=== PATIENT | male | born 1950 | race Caucasian/White ===

== ENCOUNTER 2024-06-04 11:15 | Emergency (ER) | payer MEDICARE, OTHER ==
[~2024-06-04] VITALS: Ht 177.8 cm; Wt 83.9 kg
[2024-06-04 13:43] LABS: BASOPHILS ABSOLUTE AUTO 0.03 K/mm3 (0.00-0.23); BASOPHILS PERCENT AUTO 0 % (0-2); EOSINOPHILS ABSOLUTE AUTO 0.03 K/mm3 (0.00-0.68); EOSINOPHILS PERCENT AUTO 0 % (0-6); Hematocrit 42.9 % (37.0-53.0); Hemoglobin 14.7 g/dL (13.5-17.5); IMMATURE GRAN ABSOLUTE AUTO 0.05 K/mm3 (0.00-0.10); IMMATURE GRAN PERCENT AUTO 1 % (0-1); LYMPHOCYTES ABSOLUTE AUTO 1.45 K/mm3 (0.84-5.20); LYMPHOCYTES PERCENT AUTO 14 % (21-46); MONOCYTES ABSOLUTE AUTO 0.98 K/mm3 (0.16-1.47); MONOCYTES PERCENT AUTO 9 % (4-13); Mean Corpuscular HGB 30.1 pg (26.0-34.0); Mean Corpuscular HGB Conc 34.3 g/dL (31.5-36.5); Mean Corpuscular Volume 88 fL (80-100); Mean Platelet Volume 9.9 fL (9.1-12.4); NEUTROPHILS ABSOLUTE AUTO 7.97 K/mm3 (1.96-9.15); NEUTROPHILS PERCENT AUTO 76 % (41-73); Platelet Count 263 K/mm3 (150-400); RDW Coefficient Variation 13.3 % (11.7-14.2); Red Blood Cell Count 4.89 M/mm3 (4.30-5.90); White Blood Cell Count 10.51 K/mm3 (4.00-11.30)
[2024-06-04] MEDS ORDERED: Cephalexin Monohydrate 500 MG Cap PO ONE (13:50)
[2024-06-04] MEDS ORDERED: CEPH500 PO (13:56)
[2024-06-04 13:58] LABS: Albumin, Blood 2.8 g/dL (3.4-5.0); Albumin/Globulin Ratio 0.6 (0.8-1.8); Bilirubin, Total 0.6 mg/dL (0.1-1.0); Bun/Creatinine Ratio 32.3 (12.0-20.0); Calcium, Blood 8.9 mg/dL (8.5-10.1); Creatinine, Blood 0.71 mg/dL (0.60-1.20); Globulin, Blood 4.7 g/dL (2.2-4.0); Potassium, Blood 4.4 mmol/L (3.5-5.5); Total Protein, Blood 7.5 g/dL (6.4-8.2)
== END 2024-06-04 14:51 | disposition home or self-care (01) ==
LOC: ER 11:15
PROVIDERS: Physician Assistant
DX: L03.031 Cellulitis of right toe (principal); L03.113 Cellulitis of right upper limb; G20.A1 Parkinson's disease without dyskinesia, without mention of fluctuations; E11.9 Type 2 diabetes mellitus without complications
CPT/HCPCS: 73080; 73110; 73630; 80053; 85025; A9270

== ENCOUNTER → 2024-06-13 | Outpatient (CLI) | payer MEDICARE, OTHER ==
[~2024-06-13] MED LIST: CARBIDOPA-LEVO1 EA19 PO; CEPH500 PO; FAMO20 PO; INSULIN AS100 UNIT/8 SC; LOVASTATIN20 MG PO; METOPROLOL TART25 MG PO; MINOCYCLINE HC100 M2 PO; NOVOLOG FL100 UNIT/3 SC; ROPINIROLE HCL2 MG PO; SULFAMETHOXAZO1 EAC1 PO; TAMSULOSIN HCL0.4 M1 PO
== END ==
LOC: LAB 09:25 → LAB SHORT 09:25
DX: E11.621 Type 2 diabetes mellitus with foot ulcer (principal)
CPT/HCPCS: 87070; 87075; 87077; 87186; 87205

== ENCOUNTER 2024-06-25 10:34 | Inpatient (IN) | payer MEDICARE, OTHER ==
[~2024-06-25] VITALS: Ht 177.8 cm; Wt 75.4 kg
[~2024-06-25 10:34] MED LIST changes: -CARBIDOPA-LEVO1 EA19 PO; -FAMO20 PO; -INSULIN AS100 UNIT/8 SC; -LOVASTATIN20 MG PO; -METOPROLOL TART25 MG PO; -MINOCYCLINE HC100 M2 PO; -NOVOLOG FL100 UNIT/3 SC; -ROPINIROLE HCL2 MG PO; -SULFAMETHOXAZO1 EAC1 PO; -TAMSULOSIN HCL0.4 M1 PO
[2024-06-25 11:27] LABS: BASOPHILS ABSOLUTE AUTO 0.04 K/mm3 (0.00-0.23); BASOPHILS PERCENT AUTO 1 % (0-2); EOSINOPHILS ABSOLUTE AUTO 0.03 K/mm3 (0.00-0.68); EOSINOPHILS PERCENT AUTO 0 % (0-6); Hematocrit 37.3 % (37.0-53.0); Hemoglobin 12.4 g/dL (13.5-17.5); IMMATURE GRAN ABSOLUTE AUTO 0.06 K/mm3 (0.00-0.10); IMMATURE GRAN PERCENT AUTO 1 % (0-1); LYMPHOCYTES ABSOLUTE AUTO 1.49 K/mm3 (0.84-5.20); LYMPHOCYTES PERCENT AUTO 17 % (21-46); MONOCYTES ABSOLUTE AUTO 0.57 K/mm3 (0.16-1.47); MONOCYTES PERCENT AUTO 7 % (4-13); Mean Corpuscular HGB 29.4 pg (26.0-34.0); Mean Corpuscular HGB Conc 33.2 g/dL (31.5-36.5); Mean Corpuscular Volume 88 fL (80-100); NEUTROPHILS PERCENT AUTO 75 % (41-73); Platelet Count 317 K/mm3 (150-400); RDW Coefficient Variation 13.5 % (11.7-14.2); RDW Standard Deviation 43.3 fL (35.1-46.3); Red Blood Cell Count 4.22 M/mm3 (4.30-5.90); White Blood Cell Count 8.69 K/mm3 (4.00-11.30)
[2024-06-25] MEDS ORDERED: SULFAMETHOXAZO1 EAC1 PO (11:32)
[2024-06-25] MEDS ORDERED: MINOCYCLINE HC100 M2 PO (11:32)
[2024-06-25] MEDS ORDERED: NOVOLOG FL100 UNIT/3 SC (11:33)
[2024-06-25] MEDS ORDERED: METOPROLOL TART25 MG PO (11:33)
[2024-06-25] MEDS ORDERED: CARBIDOPA-LEVO1 EA19 PO (11:33)
[2024-06-25] MEDS ORDERED: FAMO20 PO (11:33)
[2024-06-25] MEDS ORDERED: LOVASTATIN20 MG PO (11:33)
[2024-06-25] MEDS ORDERED: INSULIN AS100 UNIT/8 SC (11:34)
[2024-06-25] MEDS ORDERED: TAMSULOSIN HCL0.4 M1 PO (11:34)
[2024-06-25] MEDS ORDERED: ROPINIROLE HCL2 MG PO (11:34)
[2024-06-25] MEDS ORDERED: Piperacillin/Tazobactam Sod 3.375 GM in NS 100 ML IV ONE (11:45)
[2024-06-25 11:46] LABS: Albumin, Blood 2.2 g/dL (3.4-5.0); Albumin/Globulin Ratio 0.5 (0.8-1.8); Bilirubin, Total 0.7 mg/dL (0.1-1.0); Bun/Creatinine Ratio 26.1 (12.0-20.0); Calcium, Blood 8.7 mg/dL (8.5-10.1); Creatinine, Blood 0.69 mg/dL (0.60-1.20); Globulin, Blood 4.7 g/dL (2.2-4.0); Potassium, Blood 4.5 mmol/L (3.5-5.5); Total Protein, Blood 6.9 g/dL (6.4-8.2)
[2024-06-25] MEDS ORDERED: FentaNYL Citrate 50 MCG/ML 2 ML Injection IV ONE (11:50)
[2024-06-25] MEDS ORDERED: NS 1,000 ML IV SCH (11:50)
[2024-06-25] MEDS ORDERED: Vancomycin HCL 2,000 MG in NS 500 ML IV ONE ×2 (11:50→13:05)
[2024-06-25] MEDS ORDERED: Ketorolac Tromethamine 30mg Vial IV ONE (11:50)
[2024-06-25] MEDS ORDERED: Piperacillin/Tazobactam Sod 3.375 GM in NS 100 ML IV SCH ×2 (13:00→18:00)
[2024-06-25] MEDS ORDERED: Ondansetron 4 MG SoluTab MM PRN (13:15)
[2024-06-25] MEDS ORDERED: Morphine Sulfate 4 MG/1 ML Injection IV PRN (13:15)
[2024-06-25 14:54] VITALS: BP 141/56
[2024-06-25] MEDS ORDERED: Insulin Regular 100 UNIT/ML 10ML Vial SC SCH (18:00)
[2024-06-25] MEDS ORDERED: NS 250 ML IV PRN (18:35)
[2024-06-25 19:51] VITALS: BP 135/63
[2024-06-25] MEDS ORDERED: Lactobacil 2-S.Thermo-Bifido 1 1 Cap PO SCH (21:00)
--- NOTE | 2024-06-25 23:47 | NUR ---
HOSPITALIST CONTACTED. HOSPITALIST NOTIFIED OF WOUND TO COCCYX AND REDNESS/EXCORITATION TO PENIS AND GROIN. ODALYS ORDERED FOR PATIENT TO HAVE MEDICATED POWDER AND WOUND CARE TO COCCYX-SEE ORDERS.
[2024-06-26] MEDS ORDERED: Vancomycin HCL 1,500 MG in NS 250 ML IV SCH (01:00)
[2024-06-26 02:22] VITALS: BP 136/61
[2024-06-26 05:53] LABS: BASOPHILS ABSOLUTE AUTO 0.04 K/mm3 (0.00-0.23); BASOPHILS PERCENT AUTO 1 % (0-2); EOSINOPHILS ABSOLUTE AUTO 0.07 K/mm3 (0.00-0.68); EOSINOPHILS PERCENT AUTO 1 % (0-6); Hematocrit 34.6 % (37.0-53.0); Hemoglobin 11.5 g/dL (13.5-17.5); IMMATURE GRAN ABSOLUTE AUTO 0.05 K/mm3 (0.00-0.10); IMMATURE GRAN PERCENT AUTO 1 % (0-1); LYMPHOCYTES ABSOLUTE AUTO 1.78 K/mm3 (0.84-5.20); LYMPHOCYTES PERCENT AUTO 24 % (21-46); MONOCYTES ABSOLUTE AUTO 0.57 K/mm3 (0.16-1.47); MONOCYTES PERCENT AUTO 8 % (4-13); Mean Corpuscular HGB 29.3 pg (26.0-34.0); Mean Corpuscular HGB Conc 33.2 g/dL (31.5-36.5); Mean Corpuscular Volume 88 fL (80-100); Mean Platelet Volume 8.9 fL (9.1-12.4); NEUTROPHILS ABSOLUTE AUTO 4.94 K/mm3 (1.96-9.15); NEUTROPHILS PERCENT AUTO 66 % (41-73); Platelet Count 297 K/mm3 (150-400); RDW Coefficient Variation 13.5 % (11.7-14.2); RDW Standard Deviation 43.4 fL (35.1-46.3); Red Blood Cell Count 3.93 M/mm3 (4.30-5.90); White Blood Cell Count 7.45 K/mm3 (4.00-11.30)
[2024-06-26 06:17] LABS: Albumin, Blood 1.8 g/dL (3.4-5.0); Albumin/Globulin Ratio 0.4 (0.8-1.8); Bilirubin, Total 0.6 mg/dL (0.1-1.0); Bun/Creatinine Ratio 24.7 (12.0-20.0); Calcium, Blood 8.3 mg/dL (8.5-10.1); Creatinine, Blood 0.53 mg/dL (0.60-1.20); Globulin, Blood 4.3 g/dL (2.2-4.0); Potassium, Blood 3.9 mmol/L (3.5-5.5); Total Protein, Blood 6.1 g/dL (6.4-8.2)
--- NOTE | 2024-06-26 06:28 | NUR ---
SHIFT SUMMARY. PATIENT IS ALERT TO SELF AND PLACE. PATIENT IS PLEASANTLY CONFUSED. PATIENT IS POOR HISTORIAN. DAUGHTER TO BRING IN MEDICATION LIST TODAY-SHE SAID SHE WOULD BE IN AROUND 10AM. PATIENT NEEDS CONSULT CALLED IN TO WITH PODIATRY WHEN HIS OFFICE OPEN-WILL RELAY TO DAYSHIFT NURSE. PATIENT RESTED T/O NIGHT, EASILY AROUSABLE-PATIENT SNORES. PATIENT HAS GRADY CATHETER IN PLACE THAT IS PATENT AND DRAINING TO GRAVITY-PATIENT STRAIGHT CATHS AT BASELINE. PATIENT HAS WOUND TO COCCYX, EXCORIATION TO TIP OF PENIS AND RED RASH TO GROIN- SEE WOUND CARE ORDER. BED IS LOCKED IN THE LOWEST POSITION WITH CALL LIGHT IN PLACE. CARE IS ONGOING.
[2024-06-26 07:25] VITALS: BP 137/65
[2024-06-26] MEDS ORDERED: Miconazole Nitrate 2% 85 GM PWD TOP SCH (09:00)
[2024-06-26] MEDS ORDERED: NS 1,000 ML IV SCH (11:15)
[2024-06-26] MEDS ORDERED: VITAMIN D325 MC3 PO (14:43)
[2024-06-26] MEDS ORDERED: ASPIR 8181 M1 PO (14:43)
[2024-06-26 16:53] VITALS: BP 144/55
[2024-06-26] MEDS ORDERED: BACTRIM DS TAB1 EAC6 PO (17:14)
--- NOTE | 2024-06-26 19:25 | NUR ---
SHIFT SUMMARY PATIENT RESTING MOST OF DAY. PATIENT EASILY AROUSES, SPEAKS SOFTLY, TOLERATING EATING AND DRINKING. SPOKE WITH PODIATRY. PATIENT TO HAVE SURGERY TOMORROW. INTERVENTIONAL CARDIOLOGY SPOKE WITH DAUGHTER AND PATIENT ABOUT REVASULARIZING LEG ON SUNDAY. TOE CONTINUES TO HAVE SOME DRAINAGE. NOW BLISTER DEVELOPING ON R HEAL. NO PRESSURE TO AREA ALL DAY BUT CONTINUES TO PROGRESS.
[2024-06-26 20:00] VITALS: BP 139/66
[2024-06-27] VITALS (16 sets, daily range): BP systolic 136–153; BP diastolic 60–80
--- NOTE | 2024-06-27 06:05 | NUR ---
SHIFT SUMMARY. PATIENT IS A&OX2. PATIENT RESTING MOST OF SHIFT-EASILY AROUSABLE. PATIENT IS SOFT SPOKEN. PATIENT HAD BED BATH AND LINENS CHANGED. PATIENTS IV WENT BAD-NEW IV PLACED-IV PULLED-PATIENT HAS NEW LINE THAT IS COVERED FOR PROTECTION. PATIENT HAS BEEN NPO SINCE MIDNIGHT. PATIENT DENIES PAIN. PATIENT IS PLEASANTLY CONFUSED AND COOPERATIVE WITH CARE. PLAN IS FOR PODIATRY TO SEE PATIENT TODAY-POSSIBLE SURGERY PER REPORT. BED IS LOCKED IN THE LOWEST POSITION WITH CALL LIGHT IN REACH. CARE IS ONGOING.
[2024-06-27 09:24] LABS: BASOPHILS ABSOLUTE AUTO 0.03 K/mm3 (0.00-0.23); BASOPHILS PERCENT AUTO 0 % (0-2); EOSINOPHILS ABSOLUTE AUTO 0.13 K/mm3 (0.00-0.68); EOSINOPHILS PERCENT AUTO 2 % (0-6); Hematocrit 35.1 % (37.0-53.0); Hemoglobin 11.2 g/dL (13.5-17.5); IMMATURE GRAN ABSOLUTE AUTO 0.03 K/mm3 (0.00-0.10); IMMATURE GRAN PERCENT AUTO 0 % (0-1); LYMPHOCYTES ABSOLUTE AUTO 1.46 K/mm3 (0.84-5.20); LYMPHOCYTES PERCENT AUTO 21 % (21-46); MONOCYTES ABSOLUTE AUTO 0.44 K/mm3 (0.16-1.47); MONOCYTES PERCENT AUTO 6 % (4-13); Mean Corpuscular HGB 28.4 pg (26.0-34.0); Mean Corpuscular HGB Conc 31.9 g/dL (31.5-36.5); Mean Corpuscular Volume 89 fL (80-100); Mean Platelet Volume 8.3 fL (9.1-12.4); NEUTROPHILS ABSOLUTE AUTO 4.76 K/mm3 (1.96-9.15); NEUTROPHILS PERCENT AUTO 70 % (41-73); Platelet Count 272 K/mm3 (150-400); RDW Coefficient Variation 13.4 % (11.7-14.2); RDW Standard Deviation 43.9 fL (35.1-46.3); Red Blood Cell Count 3.94 M/mm3 (4.30-5.90); White Blood Cell Count 6.85 K/mm3 (4.00-11.30)
[2024-06-27 09:42] LABS: Bun/Creatinine Ratio 12.4 (12.0-20.0); Calcium, Blood 8.3 mg/dL (8.5-10.1); Creatinine, Blood 0.57 mg/dL (0.60-1.20); Potassium, Blood 3.8 mmol/L (3.5-5.5)
[2024-06-27] MEDS ORDERED: Bupivacaine 0.5% HCl 5 MG/ML 30MLVIAL ONE (11:30)
[2024-06-27] MEDS ORDERED: Lidocaine HCL 1% 10 ML MDV ONE (11:31)
[2024-06-27] MEDS ORDERED: Bupivacaine 0.5% Inj 10 ML Vial ONE (11:31)
[2024-06-27] MEDS ORDERED: Lactated Ringer's 1,000 ML IV SCH (11:45)
--- NOTE | 2024-06-27 11:51 | NUR ---
PT REPORTED TO BE NPO BY MED FLOOR RN. PT RECENTLY TO [facility] BY BED WITH MULT ASSIST. History, Chart, Medications and Allergies reviewed before start of procedure.Lungs clear T/O to Auscultation. Pre-Op teaching done. Pt verbalizes understanding. DR PADILLA AND ANESTHESIA TALKING WITH PT'S DAUGHTER ON PHONE TO CONFIRM CONSENT.
[2024-06-27] MEDS ORDERED: propofoL 20 ML IV ONE ×2 (12:10→12:31)
[2024-06-27] MEDS ORDERED: Lidocaine HCl 2% 20 ML MDV ONE (12:31)
--- NOTE | 2024-06-27 13:46 | NUR ---
TRANSFER TO OR PATIENT TAKEN DOWN BY BED TO OR. PATIENT ALERT AND INTERACTIVE BUT CONFUSED. R LEG VERY TENDER TO TOUCH BUT DENIES PAIN IF UNDISTURBED. PATIENT TO HAVE R SECOND TOE REMOVED. FAMILY AWARE OF SURGERY PLAN BUT NOT PRESENT.
--- NOTE | 2024-06-27 13:55 | NUR ---
POST OP FROM PACU TO MED FLOOR PT BROUGHT UP FROM PACU BY 2 ELECTRICAL MAINTENANCE WORKER'S, SLEEPING BUT WAKES TO VOICE AND FOLLOWS COMMANDS, POST OP VITALS STARTED, RESPS EVEN AND UNLABORED, O2 SATS > 96% ON RA, DRESSING TO R FOOT C/D/I, ABLE TO PALPATE PULSE BLE WHICH ARE BOTH FAINT BUT PRESENT, CAP REFILL < 3 SECONDS BLE, GRADY HAS CLEAR YELLOW URING IN IT. NO CONCERNS AT THIS TIME.
--- NOTE | 2024-06-27 15:12 | NUR ---
SHIFT SUMMARY POD0 R SECOND TOE AMPUTATION, PT HAS SLEPT T/O MOST OF THE SHIFT SINCE RETURNING FROM SURGERY, FAMILY AT THE BEDSIDE FOR THE LAST FEW HOURS, PT WAKES TO VOICE AND IS SOCIALIZING WITH HIS VISITORS, TOLERATING PO POST OP AND REPORTS FEELING HUNGRY. POST OP VITALS CONTINUING. NO ACUTE EVENTS THIS SHIFT, CALL LIGHT IN REACH.
--- NOTE | 2024-06-27 18:33 | NUR ---
ASPIRATION CONCERNS DINNER TRAY WAS BROUGHT IN BY FINISHED HARDWARE ERECTOR WHO ATTEMPTED TO FEED THE PATIENT PER THE DAUGHTERS STATEMENT THAT HE NEEDS HELP EATING. PT GIVEN BITES OF FOOD AND WAS COUGHING WITH EACH BITE. FINISHED HARDWARE ERECTOR REPORTED TO THIS RN HIS CONCERNS WITH THE PATIENT BEING AT RISK FOR ASPIRATION. ASSESSEDD PATIENT WHO SOUNDS A BIT COURSE IN HIS RIGHT LOWER LOBE. CALL PLACED TO ATTENDING REQUESTING ST EVALUATE HIM. ORDERS PLACED. PT NOW NPO UNTIL EVAL COMPLETE
[2024-06-28 03:31] VITALS: BP 134/72
--- NOTE | 2024-06-28 05:36 | NUR ---
SHIFT SUMMARY PATIENT DID NOT TRY TO GET OUT OF BED, WAS AWAKE AND PULLED OUT HIS IV, HAD BREAKER NURSE SHERRI SNU RESTART FOR ME. REMAINS NPO. DRESSING CD&I CIRC TO RIGHT BIG TOE WNL. ELEVATED ON 2 PILLOWS. GRADY DRAINING YIN URINE. GIVEN 2 MG MS FOR PAIN.
[2024-06-28 08:06] VITALS: BP 141/60
[2024-06-28] MEDS ORDERED: Acetaminophen 325 MG TABLET PO PRN (13:45)
[2024-06-28] MEDS ORDERED: Enoxaparin 40 MG/0.4 ML SYR SC SCH (14:00)
[2024-06-28 15:47] VITALS: BP 143/62
--- NOTE | 2024-06-28 18:39 | NUR ---
NO CHANGE IN PT CONDITION. PT HAS BEEN LAYING QUIETLY WITH NO C/O PAIN NO DISTRESS, VERY DIFFICULT TO UNDERSTAND BUT HAS BEEN ANSWERING APPROPRIATLY. TURNED EVERY 2 HOURS OR NEEDED X 2 BM AND MEPILEX REPLACED TO COCCYX. GRADY DRAINING AND IN PLLACE
[2024-06-28 19:24] VITALS: BP 149/53
--- NOTE | 2024-06-29 01:25 | NUR ---
PT ARRIVED TO MEDICAL FLOOR AT 2350 VIA W/C. ALFRED WEATHERS COMPLETED THE INITIAL ADMISSION AND THE SKIN CHECK WITH THIS DELPHI PROGRAMMER. THIS DELPHI PROGRAMMER COMPLETED MED REC AND HEALTH HX INTERVENTION ON EMAR. PT. IS A&O X4, ABLE TO AMBULATE TO THE BATHROOM. PT WAS ABLE TO ANSWER ALL ADMISSION QUESTIONS HIMSELF. PT DENIES PAIN, SOB, H/A, N/V. PER ORDER: FLUID RESTRICTION IS 1500ML/ DAY. PT HAD A SMALL SNACK AND REQUESTED SOME SPRITE &H20. 480MLS X 2 CUPS BY THE BEDSIDE. EDUCATED DWARF TREE GROWER LIGHT, BED AT THE LOWEST POSITION. PT IS ABLE TO MAKE HIS NEEDS KNOWN.
[2024-06-29 02:51] VITALS: BP 151/67
--- NOTE | 2024-06-29 05:59 | NUR ---
SHIFT SUMMARY PT IS ON BEDREST AND MOSTLY NON VERBAL D/T HX OF PARKINSON'S DISEASE. PT ABLE TO ANSWER CLOSE-ENDED QUESTIONS. PT VOCALIZING THAT HE IS VERY THIRSTY. NOTED THAT CLEAR LIQUIDS MAKE PT COUGH, HOB >90 DEGREES WHEN GIVEN tsp AT A TIME, CLEAR ENSURE FLUID. WHEN MIXED WITH APPLE SAUCE TO HONEY CONSISTENCY, PT HAD >120MLS OF THE FLUID AND ENJOYED IT W/O COUGHING. PT ABLE TO SWALLOW EASILY. MONITORED AND HOB >90 DEGREES 30 MINS AFTER FEEDING. PT IS ABLE TO SAY "NO" WHEN ASKED IF HE IS IN PAIN. COCCYX AREA MEPILEX CHANGED X1 DURING THIS SHIFT, ULCER IS LIGHT PINK AND SURROUNDING AREA APPEARS DRY, NON INFLAMMED.GRADY INTACT, DRAINING TEA COLOR URINE >1L DURING THIS SHIFT. LEFT FOOT ELEVATED WITH PILLOWS. DRESSING C/D/I. Q2HR TURNS. NO ACUTE EVENTS/DISTRESS DURING THIS SHIFT. Q6HRS BG'S WNL. BED AT THE LOWEST POSITION.
[2024-06-29 06:18] LABS: BASOPHILS ABSOLUTE AUTO 0.04 K/mm3 (0.00-0.23); BASOPHILS PERCENT AUTO 1 % (0-2); EOSINOPHILS ABSOLUTE AUTO 0.17 K/mm3 (0.00-0.68); EOSINOPHILS PERCENT AUTO 2 % (0-6); Hematocrit 35.2 % (37.0-53.0); Hemoglobin 11.5 g/dL (13.5-17.5); IMMATURE GRAN ABSOLUTE AUTO 0.06 K/mm3 (0.00-0.10); IMMATURE GRAN PERCENT AUTO 1 % (0-1); LYMPHOCYTES ABSOLUTE AUTO 1.46 K/mm3 (0.84-5.20); LYMPHOCYTES PERCENT AUTO 21 % (21-46); MONOCYTES ABSOLUTE AUTO 0.58 K/mm3 (0.16-1.47); MONOCYTES PERCENT AUTO 8 % (4-13); Mean Corpuscular HGB 28.8 pg (26.0-34.0); Mean Corpuscular HGB Conc 32.7 g/dL (31.5-36.5); Mean Corpuscular Volume 88 fL (80-100); Mean Platelet Volume 8.6 fL (9.1-12.4); NEUTROPHILS ABSOLUTE AUTO 4.75 K/mm3 (1.96-9.15); NEUTROPHILS PERCENT AUTO 67 % (41-73); Platelet Count 281 K/mm3 (150-400); RDW Coefficient Variation 13.5 % (11.7-14.2); RDW Standard Deviation 43.7 fL (35.1-46.3); Red Blood Cell Count 3.99 M/mm3 (4.30-5.90); White Blood Cell Count 7.06 K/mm3 (4.00-11.30)
[2024-06-29 06:50] LABS: Bun/Creatinine Ratio 13.9 (12.0-20.0); Calcium, Blood 8.7 mg/dL (8.5-10.1); Creatinine, Blood 0.65 mg/dL (0.60-1.20); Potassium, Blood 3.4 mmol/L (3.5-5.5)
[2024-06-29] MEDS ORDERED: Potassium Chloride 20 MEQ TabCR PO ONE (08:40)
[2024-06-29 10:08] VITALS: BP 141/59
[2024-06-29 15:40] VITALS: BP 152/55
[2024-06-29] MEDS ORDERED: Insulin Regular 100 UNIT/ML 10ML Vial SC SCH (16:30)
[2024-06-29] MEDS ORDERED: CefTRIAXone Sodium 1,000 MG in NS 100 ML IV SCH (17:00)
--- NOTE | 2024-06-29 19:15 | NUR ---
no change in pt condition today. pt did well with meals and turning but has been unable to make needs known. still confused about place and situation but is able to answer appropriatly. palative care consult place. alison marcelino in [facility]
[2024-06-29 19:38] VITALS: BP 156/61
--- NOTE | 2024-06-30 04:06 | NUR ---
SHIFT SUMMARY PATIENT HAD NO ACUTE CHANGES. AXOX 2, BEDREST, AND MOSTLY NON-VERBAL. DENIES CHEST PAIN, SOB, AND N/V. VSS/AFEBRILE. PIV INTACT. IV ABX INFUSED. CBG 161. GRADY PATENT AND DRAINING TO GRAVITY. SLEPT MOST OF THE SHIFT. CALL LIGHT IN REACH. BED IN LOWEST POSITION. WILL CONTINUE TO MONITOR UNTIL DAY SHIFT NURSE ASSUMES CARE.
[2024-06-30 05:00] VITALS: BP 154/72
[2024-06-30 07:42] VITALS: BP 160/60
[2024-06-30 12:47] LABS: Vancomycin, Trough 34.7 ug/mL (5.0-10.0)
[2024-06-30] MEDS ORDERED: CARBIDOPA-LEVO1 EA17 PO (15:08)
[2024-06-30 16:09] VITALS: BP 153/58
--- NOTE | 2024-06-30 16:35 | NUR ---
Attempted to meet with pt and his daughter Carla this afternoon, but she already left for the day. Spoke to her by phone. She and her dad live together and she is his primary CG. They live in [place], and she requests we meet tomorrow afternoon instead to discuss goals of care, and code status. Pt is not speaking as his daughter reports he normally does, but he has been unable to take his Carbidopa/Levodopa by mouth due to his poor swallow. His daughter is bringing ODT Carbidopa/Levodopa as this will likely help with his speech. Will update bedside RN.
--- NOTE | 2024-06-30 18:26 | NUR ---
REPORT RECEIVED VERIFIED PT FAILED SPEECH EVAL AND WAS MADE NPO. PT DOESNT SEEM TO UNDERSTAND AND KEEPS ASKING FOR WATER OR FOOD. CHARAN BREAKFAST TODAY BUT LUNCH AND EVAL FAILED. DAUGHTER AT BEDSIDE WAS GIVEN SCRIPT FOR PT MEDICATION. STATED SHE WOULD BE BACK TOMORROW WITH MEDICATION. PT TO HAVE REVASCULARIZATION TOMORROW SO IS NPO AFTER MIDNIGHT.
[2024-06-30 19:42] VITALS: BP 154/64
[2024-07-01] VITALS (10 sets, daily range): BP systolic 148–173; BP diastolic 49–71
--- NOTE | 2024-07-01 04:01 | NUR ---
SET UP MECHANIC HEADING MACHINES SUMMARY VSS. DRESSING OF RIGHT FOOT CDI. AM NURSE VOICED HE CHANGED DRESSING ON AM SHIFT. PT HAS PARKINSONS DISEASE. SPEAKS VERY SLOW AND SOFT WHEN HE ANSWERS QUESTIONS. GRADY DRAINING. REPOSITIONED FOR COMFORT AND SKIN MAINTENANCE. ALSO HAS DECUBITUS ULCER OF COCCYX. HAS BEEN RESTING QUIETLY WITH FEW INTERRUPTIONS NOTED. CONTACT ISOLATION MAINTAINED. CALL LIGHT IN REACH, RAILS UP X 2 AND BED IN LOW POSITION FOR SAFETY. WILL CONTINUE TO MONITOR
[2024-07-01 05:49] LABS: BASOPHILS ABSOLUTE AUTO 0.03 K/mm3 (0.00-0.23); BASOPHILS PERCENT AUTO 0 % (0-2); EOSINOPHILS ABSOLUTE AUTO 0.06 K/mm3 (0.00-0.68); EOSINOPHILS PERCENT AUTO 1 % (0-6); Hematocrit 37.1 % (37.0-53.0); Hemoglobin 11.8 g/dL (13.5-17.5); IMMATURE GRAN ABSOLUTE AUTO 0.06 K/mm3 (0.00-0.10); IMMATURE GRAN PERCENT AUTO 1 % (0-1); LYMPHOCYTES ABSOLUTE AUTO 1.51 K/mm3 (0.84-5.20); LYMPHOCYTES PERCENT AUTO 19 % (21-46); MONOCYTES ABSOLUTE AUTO 0.71 K/mm3 (0.16-1.47); MONOCYTES PERCENT AUTO 9 % (4-13); Mean Corpuscular HGB 28.4 pg (26.0-34.0); Mean Corpuscular HGB Conc 31.8 g/dL (31.5-36.5); Mean Corpuscular Volume 89 fL (80-100); Mean Platelet Volume 8.7 fL (9.1-12.4); NEUTROPHILS ABSOLUTE AUTO 5.42 K/mm3 (1.96-9.15); NEUTROPHILS PERCENT AUTO 70 % (41-73); Platelet Count 297 K/mm3 (150-400); RDW Coefficient Variation 13.7 % (11.7-14.2); RDW Standard Deviation 44.4 fL (35.1-46.3); Red Blood Cell Count 4.15 M/mm3 (4.30-5.90); White Blood Cell Count 7.79 K/mm3 (4.00-11.30)
[2024-07-01 06:15] LABS: Anion Gap 8 mmol/L (3-11); Blood Urea Nitrogen 12 mg/dL (8-24); Bun/Creatinine Ratio 12.5 (12.0-20.0); CO2, Blood 31 mmol/L (21-32); Calcium, Blood 9.1 mg/dL (8.5-10.1); Chloride, Blood 105 mmol/L (98-108); Creatinine, Blood 0.96 mg/dL (0.60-1.20); Glomerular Filtration Rate 84 (60-); Glucose, Blood 194 mg/dL (70-99); Potassium, Blood 3.4 mmol/L (3.5-5.5); Sodium, Blood 141 mmol/L (136-145); Vancomycin, Random 24.4 ug/mL
[2024-07-01] MEDS ORDERED: Potassium Chl 20MEQ/Water100ML 100 ML IV ONE (07:55)
--- NOTE | 2024-07-01 09:29 | NUR ---
WHEN STARTING IV POTASSIUM FLUIDS, PATIENT'S LEFT FOREARM PIV WAS INFILTRATED. PIV REMOVED. WILL ATTEMPT TO PLACE NEW IV.
--- NOTE | 2024-07-01 09:50 | NUR ---
VERBAL ORDERS ORDERS RECIEVED FROM DR. ABDUL TO START PATIENT ON CLINIMIX IV AT 100ML/HR. CALLED PHARMACY AND THEY STATED TO PLACE STAINED GLASS WINDOW DESIGNER CONSULT CLINIMIX IS OUT OF STOCK. INFANT BABYSITTER CONSULT ORDERED. NOTIFIED.
--- NOTE | 2024-07-01 11:13 | NUR ---
ATTEMPTED TO CALL PATIENT'S DAUGHTER, TERESITA, SHE REQUESTED EARLIER IN THE DAY PRIOR TO PATIENT'S ANGIOGRAM. PATIENT IS TENTATIVELY SCHEDULED FOR SURGERY BETWEEN 1300 AND 1700. CALLED TO INFORM DAUGHTER, LEFT MESSAGE REQUESTING TO CALL BACK.
[2024-07-01] MEDS ORDERED: Aa 4.25%/Calcium/Lytes/D5w 1,000 ML IV SCH (12:20)
--- NOTE | 2024-07-01 15:15 | NUR ---
CALLED PATIENT'S DAUGHTER, TERESITA, TO INFORM HER THAT PATIENT WILL BE TRANSFERRED TO PCU AFTER HE HAS HIS ANGIOGRAM. DAUGHTER AWARE, WITH NO QUESTIONS AT THIS TIME.
[2024-07-01] MEDS ORDERED: NS 1,000 ML IV ONE ×2 (17:37→18:10)
[2024-07-01] MEDS ORDERED: Heparin Sodium 1000 Units/ML 10ML MDV ONE ×2 (17:37→18:10)
[2024-07-01] MEDS ORDERED: NS 250 ML IV ONE (17:37)
[2024-07-01] MEDS ORDERED: Insulin Regular 100 UNIT/ML 10ML Vial SC SCH (18:00)
--- NOTE | 2024-07-01 18:00 | NUR ---
TRANSFER NOTE PATIENT TAKEN FOR ANGIOGRAM PROCEDURE, FAMILY MEMBERS, TERESITA AND SIERRA, NOTIFIED VIA PHONE AND IN PERSON. BELONGINGS SENT TO ROOM PCU 18, MEDICATIONS PLACED IN PCU 18 DRAWER. REPORT GIVEN TO SAL SIMON. NEW PIV PLACED TO RIGHT WRIST FOR ANTIBIOTICS TO INFUSE, CLIMIX MOVED TO PCU 18. DRESSING TO RIGHT FOOT CHANGED THIS MORNING. NO OTHER CONCERNS AT THIS TIME.
[2024-07-01] MEDS ORDERED: Midazolam HCl 1MG / ML 2ML Vial ONE (18:10)
[2024-07-01] MEDS ORDERED: FentaNYL Citrate 50 MCG/ML 2 ML Injection ONE (18:10)
--- NOTE | 2024-07-01 21:38 | NUR ---
ASSUMPTION OF CARE: RECEIVED REPORT FROM RUSSEL SIMON AT 1915. PT RESPONDS TO VERBAL STIMULI BUT JUST MUMBLES WHEN ASKED QUESTIONS. UNABLE TO ANSWER ANY ORIENTATION QUESTIONS. PT VERY DROWSY AND FALLS ASLEEP WHEN NOT STIMULATED. PT ON RA WITH SPO2 >95%. LUNGS CLEAR AND DIM IN THE BASES. AUTO GLASS TECHNICIAN IN PLACE, SBP 150'S, HR 70'S. PUPILS EQUAL AND REACTIVE. CLINIMIX AT 100 ML/HR. PIVS INTACT. LEFT GROIN SITE DRESSING SHOWS NO SIGNS OF OOZING, BLEEDING OR HEMATOMA. DRESSING TO RIGHT FOOT C/D/I. NO BLEEDING NOTED. BED LOW AND LOCKED, CALL LIGHT IN REACH.
[2024-07-02] VITALS (13 sets, daily range): BP systolic 149–177; BP diastolic 54–102
[2024-07-02 04:16] LABS: BASOPHILS ABSOLUTE AUTO 0.02 K/mm3 (0.00-0.23); BASOPHILS PERCENT AUTO 0 % (0-2); EOSINOPHILS ABSOLUTE AUTO 0.03 K/mm3 (0.00-0.68); EOSINOPHILS PERCENT AUTO 0 % (0-6); Hematocrit 36.3 % (37.0-53.0); Hemoglobin 11.9 g/dL (13.5-17.5); IMMATURE GRAN ABSOLUTE AUTO 0.06 K/mm3 (0.00-0.10); IMMATURE GRAN PERCENT AUTO 1 % (0-1); LYMPHOCYTES ABSOLUTE AUTO 1.17 K/mm3 (0.84-5.20); LYMPHOCYTES PERCENT AUTO 15 % (21-46); MONOCYTES ABSOLUTE AUTO 0.55 K/mm3 (0.16-1.47); MONOCYTES PERCENT AUTO 7 % (4-13); Mean Corpuscular HGB 28.9 pg (26.0-34.0); Mean Corpuscular HGB Conc 32.8 g/dL (31.5-36.5); Mean Corpuscular Volume 88 fL (80-100); Mean Platelet Volume 8.5 fL (9.1-12.4); NEUTROPHILS ABSOLUTE AUTO 5.82 K/mm3 (1.96-9.15); NEUTROPHILS PERCENT AUTO 76 % (41-73); Platelet Count 279 K/mm3 (150-400); RDW Coefficient Variation 13.7 % (11.7-14.2); RDW Standard Deviation 43.8 fL (35.1-46.3); Red Blood Cell Count 4.12 M/mm3 (4.30-5.90); White Blood Cell Count 7.65 K/mm3 (4.00-11.30)
--- NOTE | 2024-07-02 05:29 | NUR ---
SHIFT SUMMARY: NO ACUTE EVENTS OVERNIGHT, PT ABLE TO REST OFF AND ON T/O THE NIGHT. SHAKES HEAD YES AND NO TO SIMPLE QUESTIONS. BUT OTHERWISE IS CONFUSED AND NOT ANSWERING QUESTIONS APPROPRIATELY. SHAKES HEAD YES TO PAIN WHEN ASKED, MEDICATED PER EMAR. GROIN SITE TO THE LEFT CONTINUES TO REMAIN CLEAN AND DRY WITH NO SIGNS OF OOZING, BLEEDING OR HEMATOMA NOTED. WOUND TO COCCYX HAS MEPILEX IN PLACE, C/D/I. WOUND TO RIGHT FOOT REMAINS C/D/I. NO SIGNS OF BLEEDING. PT ON RA T/O THE SHIFT, SPO2 >95%. SMALL ENGINE TRAINER IN PLACE, SR WITH HR 80'S. SBP 150-170'S. GRADY PATENT AND DRAINING TO GRAVITY. NO BM THIS SHIFT. PIVS INTACT. CLINIMIX AT 100 ML/HR. BED LOW AND LOCKED, CALL LIGHT IN REACH.
[2024-07-02 06:04] LABS: Anion Gap 8 mmol/L (3-11); Blood Urea Nitrogen 23 mg/dL (8-24); Bun/Creatinine Ratio 25.9 (12.0-20.0); CO2, Blood 30 mmol/L (21-32); Calcium, Blood 8.7 mg/dL (8.5-10.1); Chloride, Blood 107 mmol/L (98-108); Creatinine, Blood 0.89 mg/dL (0.60-1.20); Glomerular Filtration Rate 91 (60-); Glucose, Blood 311 mg/dL (70-99); Potassium, Blood 3.8 mmol/L (3.5-5.5); Sodium, Blood 141 mmol/L (136-145)
[2024-07-02] MEDS ORDERED: Vancomycin HCL 750 MG in NS 250 ML IV SCH (08:00)
--- NOTE | 2024-07-02 09:18 | NUR ---
ASSUMPTION OF CARE Pt resting in hospital bed, arouses to verbal stimuli, oriented to self, follows commands, pt is very slow to respond and soft spoken. Pt nods head yes/no to questions, is mostly non verbal. Monitor shows sinus rhythm with HR 60's, blood pressure stable. Spo2> 95% on room air. Pt is NPO, clinimix infusing. Cannon catheter present and draining clear yellow urine. Oral care with suction swabs this AM with plan for Q4H treatments. Pt is very weak and unable to assist with turns, Q2H turns at this time. New order for vanco this AM, administered as ordered.
--- NOTE | 2024-07-02 12:24 | NUR ---
BLOOD GLUCOSE Pt's CBG's trending up, call placed to Dr Lynn, plan to increase insulin to medium sliding scale.
[2024-07-02] MEDS ORDERED: Insulin Regular 100 UNIT/ML 10ML Vial SC SCH (13:00)
--- NOTE | 2024-07-02 19:33 | NUR ---
SHIFT SUMMARY/MEDICATION ISSUE No acute changes this shift, pts alertness alternated throughout the day. At times, pt opened eyes spontaneously, followed commands and was able to answer yes/no questions by nodding head, other times, pt was difficult to arouse and not interactive with staff. Speech therapy to room today, failed swallow eval. Dr Lynn notified. Left groin site remains stable, without hematoma or tenderness with palpation. Bilateral extremeties pink and warm, faint pedal pulses. Right toe amputation site stable, minimal drainage, wound care and dressing change this shift. Clinimix continues to infuse at 100ml/hr. MEDICATION ISSUE: Family to bedside this evening, Dr Lynn to room to discuss placing a dobhoff for nutritional support. Plan for MRI of head tomorrow then dobhoff placement. Pts daughter was to bring in ODT carbidopa levodopa filled from outside pharmacy as our pharmacy does not carry this. Daughter brought in Rx but when this RN reviewed medication prior to sending to our pharmacy, it was noted that they had given pts daughter bactrim and not carbidopa levodopa. This RN called [facility] pharmacy and was told that they are out of stock of the ODT form of this medication. Daughter was notified of this, Dr lynn also notified. Unable to start this medication until dobhoff is placed which will need to be done after the MRI. Report to Andria SIMON for casino shift manager.
[2024-07-02] MEDS ORDERED: Insulin Glargine-Yfgn 100 Unit/mL 3 ML SYR SC SCH (21:00)
--- NOTE | 2024-07-02 21:06 | NUR ---
ASSUMPTION OF CARE ASSUMED CARE OF PATIENT AT 1900, BEDSIDE SHIFT REPORT RECEIVED FROM MADALYN RN. PT RESTING IN BED, EYES OPEN. PT LOOKS IN DIRECTION ASKED WHEN PROMPTED. PT DOES NOT ANSWERS QUESTIONS. PT WEAK, MOVES UPPER EXTREMITIES SPONTANEOUSLY. HR 60'S SINUS, PT HYPERTENSIVE, SBP 140-160'S. PT ON RA ON ASSESSMENT, PLACED ON 3LPM VIA NC WHILE SLEEPING DUE TO PT OXYGEN DROPPING INTO THE 70'S. ORAL CARE PERFORMED, PT MOUTH DRY. ABDOMEN SOFT, BOWEL TONES ACTIVE IN ALL FOUR QUADRANTS, ATTENDS IN PLACE. GRADY IN PLACE PATENT DRAINING YELLOW URINE TO GRAVITY. PIV IN PLACE TO RAC AND LAC. CLINIMIX INFUSING AT 100MLS/HR. CHG DRESSING IN APLCE TO PUNCTURE SITE TO LEFT GROIN, SITE CLEAN, NO SIGNS OF OOZING OR HEMATOMA FORMATION NOTED. KERLEX DRESSING IN PLACE TO RIGHT FOOT C/D/I. BED IN LOWEST POSITION, CALL LIGHT WITHIN REACH, CARE CONTINUES.
[2024-07-03] VITALS (7 sets, daily range): BP systolic 148–197; BP diastolic 57–90
--- NOTE | 2024-07-03 04:18 | NUR ---
PT UPDATE CALL PLACED TO DR. RAGSDALE REGARDING PT BEING HYPERTENSIVE WITH SBP IN THE 190'S. AWAITING ORDERS, CARE CONTINUES.
--- NOTE | 2024-07-03 04:35 | NUR ---
SHIFT SUMMARY NO ACUTE CHANGES THIS SHIFT. PT CONTINUES TO REST IN BED, SLEEPING BUT AROUSABLE TO VERBAL STIMULI. PT ANSWERS QUESTIONS BY SHAKING/NODDING HEAD. PT LOOKS IN DIRECTION ASKED WHEN PROMPTED, FOLLOWS SOME DIRECTION. PT MOVES UPPER EXTREMITIES EQUALLY SPONTANEOUSY. PT SHAKES HEAD NO WHEN ASKED IF HE IS HAVING PAIN. HR 80'S SINUS, PT HYPERTENSIVE THIS AM WITH SBP IN THE 190'S, CALL PLACED TO DR. RAGSDALE, AWAITING ORDERS. PT ON 3LPM VIA NC WHILE SLEEPING, OXYGEN SATURATION >95%. ABDOMEN SOFT, BOWEL TONES ACTIVE IN ALL FOUR QUADRANTS, NO BM THIS SHIFT. GRADY IN PLACE PATENT DRAINING YELLOW URINE TO GRAVITY. PIV IN PLACE TO RAC AND LAC. CLINIMIX INFUSING AT 100MLS/HR. KERLEX DRESSING IN PLACE TO RIGHT FOOT C/D/I. BED IN LOWEST POSITION, CALL LIGHT WITHIN REACH, CARE CONTINUES.
[2024-07-03] MEDS ORDERED: HydrALAZINE HCl 20 MG / ML 1ML Vial IV PRN ×2 (04:45→09:00)
[2024-07-03 05:24] LABS: BASOPHILS ABSOLUTE AUTO 0.04 K/mm3 (0.00-0.23); BASOPHILS PERCENT AUTO 0 % (0-2); EOSINOPHILS ABSOLUTE AUTO 0.03 K/mm3 (0.00-0.68); EOSINOPHILS PERCENT AUTO 0 % (0-6); Hemoglobin 12.2 g/dL (13.5-17.5); IMMATURE GRAN ABSOLUTE AUTO 0.06 K/mm3 (0.00-0.10); IMMATURE GRAN PERCENT AUTO 1 % (0-1); LYMPHOCYTES ABSOLUTE AUTO 1.62 K/mm3 (0.84-5.20); LYMPHOCYTES PERCENT AUTO 18 % (21-46); MONOCYTES ABSOLUTE AUTO 0.56 K/mm3 (0.16-1.47); MONOCYTES PERCENT AUTO 6 % (4-13); Mean Corpuscular HGB 29.2 pg (26.0-34.0); Mean Corpuscular Volume 89 fL (80-100); Mean Platelet Volume 8.6 fL (9.1-12.4); NEUTROPHILS ABSOLUTE AUTO 6.66 K/mm3 (1.96-9.15); NEUTROPHILS PERCENT AUTO 74 % (41-73); Platelet Count 288 K/mm3 (150-400); RDW Coefficient Variation 13.9 % (11.7-14.2); RDW Standard Deviation 44.5 fL (35.1-46.3); Red Blood Cell Count 4.18 M/mm3 (4.30-5.90); White Blood Cell Count 8.97 K/mm3 (4.00-11.30)
[2024-07-03 05:47] LABS: Bun/Creatinine Ratio 41.4 (12.0-20.0); Creatinine, Blood 0.82 mg/dL (0.60-1.20); Potassium, Blood 4.1 mmol/L (3.5-5.5)
--- NOTE | 2024-07-03 08:26 | NUR ---
PT TO MRI
[2024-07-03] MEDS ORDERED: Aspirin 300 MG Supp PR SCH (09:00)
--- NOTE | 2024-07-03 09:15 | NUR ---
Dobhoff inserted at 52cm, xray ordered.
[2024-07-03] MEDS ORDERED: Acetaminophen 325 MG TABLET PT PRN (10:30)
[2024-07-03] MEDS ORDERED: Levodopa/Carbidopa 100 / 25 MG Tab PT SCH (12:00)
--- NOTE | 2024-07-03 13:45 | NUR ---
REPORT TO LOUIS SIMON, PREPARING TO TRANSFER TO ROOM 306
--- NOTE | 2024-07-03 18:07 | NUR ---
SHIFT SUMMARY PATIENT TRANSFERED UP FROM PCU THIS AFTERNOON. FAMILY PRESENT FOR TRANSFER. FAMILY VERBALIZING FRUSTRATION THAT PATIENT WAS NOT IMPROVING AFTER SURGERY. EDUCATED FAMILY RELATED TO PARKINSON'S DISEASE AND NOT BEING ABLE TO TAKE MEDICATIONS. REMINDED FAMILY THE CONDITION THAT PATIENT WAS IN WHEN HE WAS ADMITTED. DAUGHTER TEARFUL. TUBE FEEDING STARTED. DR ABDUL NOTIFIED OF ELEVATED BLOOD SUGAR. CONTINUE WITH CURRENT INSULIN DOSING AND REPEAT BLOOD SUGARS SCHEDULED. DRESSING OVER R FOOT DRY AND INTACT. HEAL DRESSINGS IN PLACE. PATIENT CONTINUES TO HAVE COCCYX WOUND
[2024-07-03 19:29] LABS: Vancomycin, Trough 27.5 ug/mL (5.0-10.0)
[2024-07-03] MEDS ORDERED: Insulin Glargine-Yfgn 100 Unit/mL 3 ML SYR SC SCH (21:00)
[2024-07-03] MEDS ORDERED: Metoprolol Tartrate 25 MG Tab PT SCH (21:00)
[2024-07-03] MEDS ORDERED: rOPINIRole HCl 2 MG Tab PT SCH (21:00)
[2024-07-04 03:56] VITALS: BP 149/75
[2024-07-04 04:42] LABS: BASOPHILS ABSOLUTE AUTO 0.04 K/mm3 (0.00-0.23); BASOPHILS PERCENT AUTO 0 % (0-2); EOSINOPHILS ABSOLUTE AUTO 0.02 K/mm3 (0.00-0.68); EOSINOPHILS PERCENT AUTO 0 % (0-6); Hematocrit 37.4 % (37.0-53.0); Hemoglobin 11.9 g/dL (13.5-17.5); IMMATURE GRAN PERCENT AUTO 1 % (0-1); LYMPHOCYTES ABSOLUTE AUTO 1.63 K/mm3 (0.84-5.20); LYMPHOCYTES PERCENT AUTO 16 % (21-46); MONOCYTES ABSOLUTE AUTO 0.76 K/mm3 (0.16-1.47); MONOCYTES PERCENT AUTO 8 % (4-13); Mean Corpuscular HGB 28.5 pg (26.0-34.0); Mean Corpuscular HGB Conc 31.8 g/dL (31.5-36.5); Mean Corpuscular Volume 90 fL (80-100); NEUTROPHILS ABSOLUTE AUTO 7.41 K/mm3 (1.96-9.15); NEUTROPHILS PERCENT AUTO 74 % (41-73); Platelet Count 278 K/mm3 (150-400); RDW Coefficient Variation 14.1 % (11.7-14.2); RDW Standard Deviation 45.9 fL (35.1-46.3); Red Blood Cell Count 4.18 M/mm3 (4.30-5.90); White Blood Cell Count 9.96 K/mm3 (4.00-11.30)
[2024-07-04 05:08] LABS: Anion Gap 9 mmol/L (3-11); Blood Urea Nitrogen 54 mg/dL (8-24); Bun/Creatinine Ratio 27.1 (12.0-20.0); CO2, Blood 28 mmol/L (21-32); Calcium, Blood 8.9 mg/dL (8.5-10.1); Chloride, Blood 109 mmol/L (98-108); Creatinine, Blood 1.99 mg/dL (0.60-1.20); Glomerular Filtration Rate 35 (60-); Glucose, Blood 302 mg/dL (70-99); Magnesium, Blood 2.4 mg/dL (1.6-2.4); Phosphorus, Blood 3.4 mg/dL (2.5-4.9); Potassium, Blood 4.3 mmol/L (3.5-5.5); Sodium, Blood 142 mmol/L (136-145)
[2024-07-04] MEDS ORDERED: NS 500 ML IV SCH (07:40)
[2024-07-04 07:48] VITALS: BP 149/63
--- NOTE | 2024-07-04 07:57 | NUR ---
SHIFT SUMMARY. PATIENT IS SOMNOLENT THIS SHIFT-PATIENT IS EASILY AROUSABLE. PATIENT WILL ANSWER YES OR NO QUESTIONS WITH EITHER HEAD SHAKE OR "YES"/"NO". PATIENT URINATING AROUND CATHETER THIS MORNING-REQUIRED CATHETER CHANGED TO A LARGER SIZE-SEE BLADDER MANAGEMENT. PATIENT RECEIVED A BED BATH AND LINENS CHANGE THIS MORNING. PATIENT IS COOPERATIVE WITH CARE. PATIENT ATTEMPTS TO HELP WITH MOVING SIDE TO SIDE-PATIENT IS WEAK/DECONDITIONED. DRESSING TO RIGHT 2ND TOE COMPLETED, MEPILEX TO BILATERAL HEELS CHANGED, MEPILEX ON BUTTOCKS CHANGED THIS AM. PATIENT Q2 TURNS COMPLETE. PATIENT HAS DOBB WILLOW IN AND WAS ADVANCED TO 40ML PER HOUR TONIGHT-PATIENT TOLERATING WELL. BED IS LOCKED IN LOWEST POSTITION WITH CALL LIGHT IN REACH. REPORT GIVEN TO [facility] NURSE CHELI Elizabeth RN.
[2024-07-04] MEDS ORDERED: Atorvastatin 10 MG Tab PT SCH (09:00)
[2024-07-04] MEDS ORDERED: Tamsulosin HCl 0.4 MG Cap PT SCH (09:00)
[2024-07-04] MEDS ORDERED: Aspirin 81 MG Chew PT SCH (09:00)
[2024-07-04] MEDS ORDERED: Famotidine 20 MG Tab PT SCH (09:00)
[2024-07-04] MEDS ORDERED: Cholecalciferol 1000 Unit Tablet (=25MCG) PT SCH (09:00)
[2024-07-04] MEDS ORDERED: Atorvastatin 10 MG Tab PO SCH (09:00)
[2024-07-04] MEDS ORDERED: Insulin Human Lispro 100 Units/ML 3ML Syringe SC SCH (12:00)
--- NOTE | 2024-07-04 13:21 | NUR ---
MD CALL DR AMAYA WAS CALLED TO NOTIFY THAT MR MELGAR PULLED OUT THE DOBHOFF TUBE. IT WAS DISCOVERED OUT AT 1135AM AFTER BEING SEEN WITH IT IN 10 MINUTES EARLIER. WHEN ASKED WHY HE PULLED IT OUT HE DID NOT ANSER THE FIRST FEW TIMES HE WAS ASKED THAN HE REPLIED "I DON'T KNOW". HE SEEMED UNAWARE THAT HE HAD PULLED IT OUT. HE WAS REEDUCATED ON IT AND ASKED IF HE WOULD LIKE IT REINSERTED BUT HE WAS NOT ABLE TO REPLY, SEEMED UNABLE TO UNDERSTAND. DR AMAYA WAS ALSO NOTIFIED THAT BLOOD GLUCOSE WAS 295, BUT THAT TUBE FEEDING WAS NOW STOPPED. SHE GAVE TELEPHONE ORDER TO COVER WITH 4UNITS INSULIN THIS TIME. IT WAS AGREED THAT I WOULD CALL FAMILY TO DISCUSS REPLACING DOBHOFF WITH THEM. I HAVE TRIED TO CALL DAUGHTER AND GRANDAUGHTER AND LEFT DISCREET VM ON SHAAN'S VM.
--- NOTE | 2024-07-04 14:06 | NUR ---
RN NOTE TELEPHONE CALL WITH TERESITA, DAUGHTER - SHE SAID THAT SHE DOES WANT THE DOBHOFF REPLACED. SHE VERBALISED CONSENT ALSO FOR SOFT WRIST RESTRAINTS AND VERBALISED UNDERSTANDING FOR RATIONALE FOR RESTRAINTS. ORDER FOR XRAY PLACEMENT VERIFICATION ENTERED. SOFT WRIST RESTRAINTS ON AND DR AMAYA UPDATED ON CARE STATUS.
[2024-07-04 15:20] VITALS: BP 177/62
--- NOTE | 2024-07-04 15:21 | NUR ---
MD CALL TELEPHONE ORDER THAT DOBHOFF IS CLEARED TO BE USED FROM DR AMAYA. TELEPHONE ORDER TO GIVE TUBE FEED AT 40CC/HR AND INCREASE TO 50CC/HR 6 HOURS FROM RESTART. FAMILY AT BEDSIDE.
--- NOTE | 2024-07-04 16:54 | NUR ---
SHIFT SUMMARY MR MELGAR IS VERY WEAK, AND HAS BEEN QUITE SLEEPY FOR MOST OF THE DAYS. HE HAS BEEN MORE AWAKE WITH HIS EYES OPEN WITH HIS FAMILY HERE THIS AFTERNOON. 2 PERSON ASSIST TO TURN AND REPOSITION IN BED Q2HRS. HE SPEAKS JUST ABOVE A WHISPER OCCASIONAL WORDS AND WAS ABLE TO TELL ME HIS NAME IS DON. HE GRIMACES WHEN HE IS REPOSITIONED BUT THEN DENIES HAVING DISCOMFORT OR PAIN. HE PULLED OUT NGT AROUND 1135HRS. AFTER TELEPHONE CALL WITH DAUGHTER TERESITA NGT WAS REPLACED AND CONFIRMED WITH CXR. TUBE FEED RESTARTED AT 1515HRS AT 40CC/HR WITH 40CC/HR WATER. PLAN TO INCREASE TO 50CC/HR AT 2115HRS. SOFT WRIST RESTRAINTS PLACED TO BOTH WRISTS WHEN DOBHOFF WAS REPLACED AFTER VERBAL AGREEMENT FROM DAUGHTER TERESITA TO PLACE THEM. TERESITA AND PT'S SISTER IN LAW ARE VISITING NOW. THEY SAID THAT THEY THINK HE'S DOING A LOT BETTER COMPARED TO YESTERDAY AND THAT THEY THINK HE WILL BE ABLE TO EAT AND DRINK SOON, MAYBE TOMORROW. THEY SAID THAT THEY UNDERSTAND THAT HE HAD A SWALLOW EVAL FROM SPEACH THERAPY BUT THAT HE WAS TOO SLEEPY TO COMPLY. DAUGHTER TERESITA SAID THAT SHE BELIEVES HE FATHER WOULD NOT WANT A PEG TUBE. CALL TO PALLIATIVE CARE TO SPEAK WITH FAMILY WHO WILL CONTACT THE FAMILY TOMORROW. BED LOW, CALL LIGHT IN REACH. BED ALARM ON.
[2024-07-04 16:56] LABS: Bun/Creatinine Ratio 33.1 (12.0-20.0); Creatinine, Blood 1.39 mg/dL (0.60-1.20); Potassium, Blood 4.2 mmol/L (3.5-5.5)
[2024-07-04 17:28] VITALS: BP 147/69
[2024-07-04 20:05] VITALS: BP 155/62
[2024-07-05 04:30] VITALS: BP 152/62
[2024-07-05 04:49] LABS: BASOPHILS ABSOLUTE AUTO 0.04 K/mm3 (0.00-0.23); BASOPHILS PERCENT AUTO 1 % (0-2); EOSINOPHILS ABSOLUTE AUTO 0.06 K/mm3 (0.00-0.68); EOSINOPHILS PERCENT AUTO 1 % (0-6); Hematocrit 37.2 % (37.0-53.0); Hemoglobin 11.8 g/dL (13.5-17.5); IMMATURE GRAN ABSOLUTE AUTO 0.08 K/mm3 (0.00-0.10); IMMATURE GRAN PERCENT AUTO 1 % (0-1); LYMPHOCYTES ABSOLUTE AUTO 1.66 K/mm3 (0.84-5.20); LYMPHOCYTES PERCENT AUTO 23 % (21-46); MONOCYTES ABSOLUTE AUTO 0.51 K/mm3 (0.16-1.47); MONOCYTES PERCENT AUTO 7 % (4-13); Mean Corpuscular HGB Conc 31.7 g/dL (31.5-36.5); Mean Corpuscular Volume 91 fL (80-100); NEUTROPHILS ABSOLUTE AUTO 4.86 K/mm3 (1.96-9.15); NEUTROPHILS PERCENT AUTO 67 % (41-73); Platelet Count 286 K/mm3 (150-400); RDW Standard Deviation 47.1 fL (35.1-46.3); Red Blood Cell Count 4.07 M/mm3 (4.30-5.90); White Blood Cell Count 7.21 K/mm3 (4.00-11.30)
[2024-07-05 05:15] LABS: Albumin, Blood 2.2 g/dL (3.4-5.0); Albumin/Globulin Ratio 0.5 (0.8-1.8); Bilirubin, Total 0.3 mg/dL (0.1-1.0); Bun/Creatinine Ratio 29.5 (12.0-20.0); Creatinine, Blood 1.39 mg/dL (0.60-1.20); Globulin, Blood 4.7 g/dL (2.2-4.0); Magnesium, Blood 2.3 mg/dL (1.6-2.4); Phosphorus, Blood 2.7 mg/dL (2.5-4.9); Potassium, Blood 4.2 mmol/L (3.5-5.5); Total Protein, Blood 6.9 g/dL (6.4-8.2)
--- NOTE | 2024-07-05 06:35 | NUR ---
ORIENTED TO SELF. PT CONFUSED AND PULLED WILLOW WHILE IN SOFT RESTRAINTS - UNABLE TO VERBALIZE REASONING. WILLOW REPLACED, XR PERFORMED, CLEARED FOR USE, FEED RATE INCREASED TO 50 ML/HR. REPOSITIONED THROUGHOUT SHIFT. ELEVATED CBG >200, INSULIN ADMINISTERED. RESTRAINTS REMAIN IN PLACE.
[2024-07-05] MEDS ORDERED: NS 500 ML IV SCH (08:00)
[2024-07-05 08:36] LABS: Vancomycin, Random 14.3 ug/mL
[2024-07-05 08:51] VITALS: BP 171/69
[2024-07-05] MEDS ORDERED: Insulin Glargine-Yfgn 100 Unit/mL 3 ML SYR SC SCH (09:00)
[2024-07-05] MEDS ORDERED: Vancomycin HCL 1,000 MG in NS 250 ML IV SCH (10:00)
--- NOTE | 2024-07-05 10:52 | NUR ---
CLARIFIED ORDER WITH DR AMAYA REGARDING NO NEED FOR CHEMICAL DVT PROPHYLAXIS, ORDERED TO DC AND OKAY TO GIVE LOVENOX.
--- NOTE | 2024-07-05 12:40 | NUR ---
CONTACTED DR AMAYA, PATIENT PULLED NG TUBE DESPITE BEING RESTRAINED. DR AMAYA OKAYED REINSERTION, CHEST X RAY TO VERIFY PLACEMENT. NEW TUBE INSERTED TO 55 CM. WAITING ON XRAY.
--- NOTE | 2024-07-05 15:12 | NUR ---
CONTACTED DR AMAYA FOR RENEWAL OF SOFT BILATERAL UPPER RESTRAINTS, PT PULLING ON TUBES
--- NOTE | 2024-07-05 16:15 | NUR ---
CONTACTED DR AMAYA REGARDING PATIENT PULLING HIS NG TUBE FOR THE SECOND TIME THIS SHIFT. DR AMAYA ORDERED TO LEAVE OUT, DISCONTINUE ORDERS RELATED TO NG TUBE AND ST EVAL, ADD PUREE DIET. SEE DOC NOTE FOR DETAILS.
--- NOTE | 2024-07-05 18:02 | NUR ---
SHIFT SUMMARY PATIENT IS UNRESTRAINED AT THIS TIME. NO NG TUBE. GRADY IN PLACE DRAINING TO GRAVITY. UNABLE TO SAY ANYTHING INTELLIGABLE ENTIRE SHIFT. ACCEPTING OF REPOSITIONING. TOLERATING IV ABX WELL. RIGHT SECOND TOE AMPUTATION CLOSED WITH STITCHES AND REDRESSED THIS SHIFT. INCISION EDGES APPROXIMATED, NO REDNESS OR SWELLING. NO C/O PAIN. CALL LIGHT IN REACH, PATIENT UNABLE TO MAKE NEEDS KNOWN. FREQUENT CHECKS. BED ALARM ON, BED LOW POSITION. CARES ONGOING.
[2024-07-05 20:13] VITALS: BP 188/66
[2024-07-05] MEDS ORDERED: OLANZapine 10 MG Vial IM ONE (20:20)
--- NOTE | 2024-07-06 03:39 | NUR ---
PT RESTLESS. PULLIMNG AT LINES AND WIRES. MD NOTIFIED OF PT INABILITY TO SWALLOW AND MEDS HELD. REQUESTED ALTERNATIVE MEDS FOR ANXIETY. ORDERS RECEIVED. PT MEDICATED PER ORDERS. PT RESTING QUIETLY AT THIS TIME. NO DISTRESS NOTED.
[2024-07-06 03:47] VITALS: BP 172/75
[2024-07-06 05:02] VITALS: BP 142/67
[2024-07-06 06:44] LABS: BASOPHILS ABSOLUTE AUTO 0.04 K/mm3 (0.00-0.23); BASOPHILS PERCENT AUTO 1 % (0-2); EOSINOPHILS ABSOLUTE AUTO 0.09 K/mm3 (0.00-0.68); EOSINOPHILS PERCENT AUTO 1 % (0-6); Hematocrit 39.7 % (37.0-53.0); Hemoglobin 12.4 g/dL (13.5-17.5); IMMATURE GRAN ABSOLUTE AUTO 0.05 K/mm3 (0.00-0.10); IMMATURE GRAN PERCENT AUTO 1 % (0-1); LYMPHOCYTES PERCENT AUTO 24 % (21-46); MONOCYTES ABSOLUTE AUTO 0.47 K/mm3 (0.16-1.47); MONOCYTES PERCENT AUTO 7 % (4-13); Mean Corpuscular HGB 28.3 pg (26.0-34.0); Mean Corpuscular HGB Conc 31.2 g/dL (31.5-36.5); Mean Corpuscular Volume 91 fL (80-100); Mean Platelet Volume 8.9 fL (9.1-12.4); NEUTROPHILS ABSOLUTE AUTO 4.63 K/mm3 (1.96-9.15); NEUTROPHILS PERCENT AUTO 66 % (41-73); Platelet Count 293 K/mm3 (150-400); RDW Standard Deviation 46.6 fL (35.1-46.3); Red Blood Cell Count 4.38 M/mm3 (4.30-5.90); White Blood Cell Count 6.98 K/mm3 (4.00-11.30)
[2024-07-06 07:05] LABS: Anion Gap 8 mmol/L (3-11); Blood Urea Nitrogen 34 mg/dL (8-24); Bun/Creatinine Ratio 31.2 (12.0-20.0); CO2, Blood 30 mmol/L (21-32); Calcium, Blood 9.1 mg/dL (8.5-10.1); Chloride, Blood 115 mmol/L (98-108); Creatinine, Blood 1.09 mg/dL (0.60-1.20); Glomerular Filtration Rate 72 (60-); Glucose, Blood 236 mg/dL (70-99); Potassium, Blood 3.9 mmol/L (3.5-5.5); Sodium, Blood 149 mmol/L (136-145); Vancomycin, Random 17.5 ug/mL
[2024-07-06 07:36] VITALS: BP 149/65
[2024-07-06] MEDS ORDERED: Insulin Glargine-Yfgn 100 Unit/mL 3 ML SYR SC SCH (09:00)
[2024-07-06] MEDS ORDERED: Vancomycin HCL 1,000 MG in NS 250 ML IV SCH (09:00)
--- NOTE | 2024-07-06 10:39 | NUR ---
FAMILY AT BEDSIDE. QUESTIONING WHY PATIENT DOES NOT HAVE A FEEDING TUBE. EXPLAINED HE PULLED IT AND TERESITA AND DR. AMAYA DISCUSSED NOT REPLACING DUE TO PATIENT WISHES. PATIENT ALSO DOES NOT WANT LONG-TERM FEEDING TUBE. FAMILY QUESTIONING WHY WE HAVE NOT BEEN FEEDING HIM SINCE COMING INTO HOSPITAL. I EXPLAINED SPEECH THERAPY RECOMMENDATIONS FOR NPO D/T BEING A HIGH ASPIRATION RISK. THEY STATE THEY'RE OKAY IF HE GETS PNEUMONIA BECAUSE THEY BELIEVE THAT HE IS "STARVING TO " AT THIS POINT. I EXPLAINED THAT ASPIRATION MEANS THE MAJORITY OF HIS MASTICATED FOOD IS ENTERING HIS LUNGS OPPOSED TO HIS STOMACH AND THEY DID NOT SEEM RECEPTIVE TO THIS, STATING "AT LEAST HE'S GETTING SOMETHING". PALLIATIVE CONSULT PREVIOUSLY PLACED AND FAMILY IS FIRM ON ENSURING HE IS A FULL CODE. WILL CONTACT PATIENT ADVOCACY TO MEET WITH FAMILY TOMORROW AND POTENTIALLY DISCUSS ETHICS CONSULT WITH PROVIDER DUE TO PATIENT'S MORTALITY AND FAMILY'S CONTRAINDICATED WISHES.
[2024-07-06 15:31] VITALS: BP 144/65
--- NOTE | 2024-07-06 20:59 | NUR ---
END OF SHIFT SUMMARY: A&Ox2-3 SELF AND FAMILY. FAMILY AT BEDSIDE ALL DAY, FEEDING THROUGHOUT MUCH OF THE SHIFT. GIVING PUREE FOODS, THICKENED LIQUIDS AND PUDDING. MEDS DELIVERED VIA CRUSHED AND MIXED WITH FOODS, ADMINISTERED BY FAMILY. PATIENT SWALLOWING AFTER MUCH COACHING AND DIRECTIVES FROM FAMILY. WEAK COUGH EFFORT. UNABLE TO FOLLOW DIRECTION TO AUSCULTATE LUNG SOUNDS. GRADY PATENT AND DRAINING YELLOW, CLOUDY URINE WITH SEDIMENT TO GRAVITY. TELE SINUS @ 92. NO C/O OR VISUAL SIGNS OF DISCOMFORT. BED IN LOWEST POSITION. CALL LIGHT WITHIN REACH. ALL NEEDS MET. REPORT TO ONCOMING RN.
[2024-07-06 21:03] VITALS: BP 145/68
[2024-07-07 03:08] VITALS: BP 156/73
[2024-07-07 05:25] LABS: BASOPHILS ABSOLUTE AUTO 0.06 K/mm3 (0.00-0.23); BASOPHILS PERCENT AUTO 1 % (0-2); EOSINOPHILS ABSOLUTE AUTO 0.18 K/mm3 (0.00-0.68); EOSINOPHILS PERCENT AUTO 2 % (0-6); Hematocrit 43.1 % (37.0-53.0); IMMATURE GRAN ABSOLUTE AUTO 0.07 K/mm3 (0.00-0.10); IMMATURE GRAN PERCENT AUTO 1 % (0-1); LYMPHOCYTES ABSOLUTE AUTO 1.93 K/mm3 (0.84-5.20); LYMPHOCYTES PERCENT AUTO 23 % (21-46); MONOCYTES ABSOLUTE AUTO 0.68 K/mm3 (0.16-1.47); MONOCYTES PERCENT AUTO 8 % (4-13); Mean Corpuscular HGB 28.4 pg (26.0-34.0); Mean Corpuscular HGB Conc 30.2 g/dL (31.5-36.5); Mean Corpuscular Volume 94 fL (80-100); Mean Platelet Volume 9.5 fL (9.1-12.4); NEUTROPHILS ABSOLUTE AUTO 5.51 K/mm3 (1.96-9.15); NEUTROPHILS PERCENT AUTO 65 % (41-73); Platelet Count 285 K/mm3 (150-400); RDW Coefficient Variation 14.4 % (11.7-14.2); RDW Standard Deviation 49.7 fL (35.1-46.3); Red Blood Cell Count 4.58 M/mm3 (4.30-5.90); White Blood Cell Count 8.43 K/mm3 (4.00-11.30)
[2024-07-07 05:53] LABS: Alanine Aminotransfer (ALT/SGP 11 U/L (12-78); Albumin, Blood 2.4 g/dL (3.4-5.0); Albumin/Globulin Ratio 0.5 (0.8-1.8); Alk Phos 112 U/L (50-136); Anion Gap 8 mmol/L (3-11); Aspartate Aminotrans (AST/SGOT 19 U/L (12-37); Bilirubin, Total 0.5 mg/dL (0.1-1.0); Blood Urea Nitrogen 35 mg/dL (8-24); Bun/Creatinine Ratio 29.7 (12.0-20.0); CO2, Blood 29 mmol/L (21-32); Chloride, Blood 117 mmol/L (98-108); Creatinine, Blood 1.18 mg/dL (0.60-1.20); Globulin, Blood 4.7 g/dL (2.2-4.0); Glomerular Filtration Rate 66 (60-); Glucose, Blood 193 mg/dL (70-99); Magnesium, Blood 2.3 mg/dL (1.6-2.4); Phosphorus, Blood 3.3 mg/dL (2.5-4.9); Sodium, Blood 150 mmol/L (136-145); Total Protein, Blood 7.1 g/dL (6.4-8.2); Vancomycin, Random 18.1 ug/mL
[2024-07-07] MEDS ORDERED: Vancomycin HCL 1,000 MG in NS 250 ML IV ONE (07:20)
[2024-07-07] MEDS ORDERED: Insulin Human Lispro 100 Units/ML 3ML Syringe SC SCH (07:30)
[2024-07-07 07:40] VITALS: BP 140/63
--- NOTE | 2024-07-07 13:43 | NUR ---
ASSUMED CARE OF PT. AWAKE AND ALERT. SOFT VOICE AND HARD TO UNDERSTAND.
[2024-07-07 15:48] VITALS: BP 112/90
--- NOTE | 2024-07-07 18:40 | NUR ---
SHIFT SUMMARY BEDBATH GIVEN TO PT AND HE SLEPT FOR THE AFTERNOON. ATTEMPTED TO FEED PT SUPPER BUT HE KEPT HOLDING ANY FOOD IN HIS MOUTH AND NOT SWALLOWING. IS AWAKE AND AT TIMES MUMBLES BUT HARD TO UNDERSTAND. FAMILY AT BEDSIDE AND REMINDED OF RISK OF ASPIRATION WHEN FEEDING PT ESPECIALLY IF HE IS HOLDING THE FOOD IN HIS MOUTH AND NOT SWALLOWING FOR SEVERAL MINUTES AT A TIME. IV NOT FUNCTIONING AND ATTEMPTS MADE TO START NEW IV. REPORTED TO FOOD SERVICE CASHIER.
[2024-07-07 20:39] VITALS: BP 128/59
[2024-07-07] MEDS ORDERED: Arginine/Glutamine/Calcium Hmb 1 Packet PO SCH (21:00)
--- NOTE | 2024-07-07 23:43 | NUR ---
PATIENTS OPTIFOAN GENTLE HEEL PROTECTORS REMPLACED. PATIENTS SACRAL MEPILEX REMOVED, AREA CLEANED, AND NEW SACARAL MEPILEX PLACED. WHEN CATHETER CARE WAS COMPLETED IT IS NOTED THAT PATIENT HAS A SAMLL AMOUNT OF BLEEDING AT THE TIP OF THE PENIS-AREA CLEANED AND ATTNEDS LEFT OPEN TO PREVENT PULLING.
[2024-07-08 03:05] VITALS: BP 138/67
--- NOTE | 2024-07-08 03:26 | NUR ---
DATA ANALYTICS DEVELOPER SUMMARY VSS. NOT ABLE TO TAKE PO MEDS, NOT BEING ABLE OR REFUSING TO OPEN MOUTH, BUT TOLERATING ALL OTHER MEDS - SEE MAR FOR DETAILS. REOPSITIONED FOR COMFORT, DRESSINGS/TREATMENTS DONE. HAS BEEN RESTING QUIETLY WITH OCCSAIONAL AWAKENING THROUGHOUT SHIFT. ISOLATION PRECAUTITIONS CONTINUE. CALL LIGHT IN REACH, RAILS UP X 2 AND BED IN LOW POSITION FOR SAFETY. WILL CONTINUE TO MONITOR AND PROVIDE CARE.
[2024-07-08 05:17] LABS: BASOPHILS ABSOLUTE AUTO 0.05 K/mm3 (0.00-0.23); BASOPHILS PERCENT AUTO 0 % (0-2); EOSINOPHILS ABSOLUTE AUTO 0.13 K/mm3 (0.00-0.68); EOSINOPHILS PERCENT AUTO 1 % (0-6); Hematocrit 42.2 % (37.0-53.0); IMMATURE GRAN ABSOLUTE AUTO 0.07 K/mm3 (0.00-0.10); IMMATURE GRAN PERCENT AUTO 1 % (0-1); LYMPHOCYTES ABSOLUTE AUTO 1.97 K/mm3 (0.84-5.20); LYMPHOCYTES PERCENT AUTO 15 % (21-46); MONOCYTES ABSOLUTE AUTO 0.71 K/mm3 (0.16-1.47); MONOCYTES PERCENT AUTO 5 % (4-13); Mean Corpuscular HGB 28.6 pg (26.0-34.0); Mean Corpuscular HGB Conc 30.8 g/dL (31.5-36.5); Mean Corpuscular Volume 93 fL (80-100); Mean Platelet Volume 9.7 fL (9.1-12.4); NEUTROPHILS ABSOLUTE AUTO 10.65 K/mm3 (1.96-9.15); NEUTROPHILS PERCENT AUTO 78 % (41-73); Platelet Count 322 K/mm3 (150-400); RDW Coefficient Variation 14.6 % (11.7-14.2); RDW Standard Deviation 49.6 fL (35.1-46.3); Red Blood Cell Count 4.54 M/mm3 (4.30-5.90); White Blood Cell Count 13.58 K/mm3 (4.00-11.30)
[2024-07-08 05:51] LABS: Alanine Aminotransfer (ALT/SGP 15 U/L (12-78); Albumin, Blood 2.4 g/dL (3.4-5.0); Albumin/Globulin Ratio 0.5 (0.8-1.8); Alk Phos 105 U/L (50-136); Anion Gap 10 mmol/L (3-11); Aspartate Aminotrans (AST/SGOT 13 U/L (12-37); Bilirubin, Total 0.7 mg/dL (0.1-1.0); Blood Urea Nitrogen 39 mg/dL (8-24); Bun/Creatinine Ratio 29.5 (12.0-20.0); CO2, Blood 29 mmol/L (21-32); Chloride, Blood 120 mmol/L (98-108); Creatinine, Blood 1.32 mg/dL (0.60-1.20); Globulin, Blood 4.5 g/dL (2.2-4.0); Glomerular Filtration Rate 57 (60-); Glucose, Blood 152 mg/dL (70-99); Sodium, Blood 155 mmol/L (136-145); Total Protein, Blood 6.9 g/dL (6.4-8.2); Vancomycin, Random 25.5 ug/mL
[2024-07-08] MEDS ORDERED: Sodium Chloride 0.45% 1,000 ML IV SCH (08:00)
[2024-07-08 08:08] VITALS: BP 133/59
[2024-07-08 08:09] LABS: Base Excess Venous 9.7 mmol/L; Bicarbonate Venous 31.8 mmol/L (24.0-30.0); PCO2 Venous 51.4 mmHg (38-42); pH Blood Venous 7.43 (7.34-7.37)
[2024-07-08 10:27] LABS: Source, Urine Foley catheter
[2024-07-08 10:48] LABS: Bilirubin, Urine Neg (Neg); Blood, Urine 3+ (Neg); Glucose Qualitative, Urine Neg (Neg); Ketones, Urine Neg (Neg); Leukocyte Esterase, Urine 3+ (Neg); Nitrite, Urine Neg (Neg); Protein, Urine 3+ (Neg); Urobilinogen, Urine NORM (Normal)
[2024-07-08 10:50] LABS: Appearance, Urine Turbid (Clear); Bacteria Many /hpf; Color, Urine Yellow (P-Yellow); Red Blood Cells, Urine TNTC /hpf (0-2); Squamous Epithelial Cells Not Seen /hpf (Few); White Blood Cells, Urine TNTC /hpf (0-5)
--- NOTE | 2024-07-08 13:54 | NUR ---
PICC ORDER SPOKE WITH PTS DTR TERESITA AND SHE DECLINES PICC LINE PLACEMET FOR HER DAD, "HE WILL JUST PULL IT OUT. HES HAD THEM BEFORE AND PULLS THEM OUT" EDUCATION PROVIDED ABOUT NEED AND PRECAUTIONS WE COULD TAKE TO PROTECT LINE.
[2024-07-08 14:46] LABS: Bun/Creatinine Ratio 28.8 (12.0-20.0); Calcium, Blood 9.1 mg/dL (8.5-10.1); Creatinine, Blood 1.39 mg/dL (0.60-1.20); Potassium, Blood 3.7 mmol/L (3.5-5.5)
--- NOTE | 2024-07-08 14:46 | NUR ---
CALL TO DR AMAYA: OK TO CHANGE MED DELIVERY PRECAUTIONS TO CRUSHED WITH PUDDING, YOGURT OR THICKENED FLUIDS.
--- NOTE | 2024-07-08 14:47 | NUR ---
PATIENT NOT ROUSABLE AT TIME OF MORNING MEDS AND MEDS WERE HELD.
[2024-07-08 15:31] VITALS: BP 136/64
--- NOTE | 2024-07-08 19:19 | NUR ---
SPOKE WITH RADHA IN LAB; URINE CULTURE NOT RUN. ORDER PLACED TO RUB CULTURE ON CURRENT URINE SPECIMEN.
--- NOTE | 2024-07-08 19:31 | NUR ---
DAY SHIFT SUMMARY: A&Ox2-3. DROWSY, THOUGH ROUSABLE. MORE ALERT WITH FAMILY AT BEDSIDE. LONG DISCUSSION WITH DAUGHTER REGARDING PALLIATIVE VERSUS HOSPICE. SHE IS VERY SCARED NAVIGATING THESE DECISIONS FOR HER FATHER AND COULD USE SOME GUIDANCE TO DIFFERENCE BETWEEN PALLIATIVE, HOSPICE, DNR, FULL CODE, ETC. NO PO MEDS RECEIVED TODAY D/T INABILITY TO SWALLOW. DR. AMAYA RECOMMENDS PICC AND TPN AND DAUGHTER INITIALLY DISAGREED. SHE IS NOW CONSERING THIS, THOUGH WHEN PATIENT ASKED, HE SEEMS TO BE SAYING TO HER, "JUST LET ME BE" SHE THINKS. NO BM. INCISION RIGHT SECOND TOE WITH THREE SUTURES AND SCANT AMOUNT OF CLEAR DRAINAGE. UA OBTAINED FROM [facility] AND SENT FOR ANALYSIS; NO CULTURE ORDERED, SO THIS WAS ADDED TO CURRENT SPECIMEN. 1/2 NS @ 100mL/hr x2 BAGS; FIRST OF TWO BAGS RUNNING. DAUGHTER WONDERING IF IMAGING CAN BE DONE TO DETERMINE SWALLOW REFLEX; SHE WILL ASK PROVIDER IF HE IS A CANDIDATE FOR BARRIUM SWALLOR OR CT TO R/O RECENT STROKE HE WAS ABLE TO DO ADLs LAST WEEK. BED IN LOWEST POSITION. CALL LIGHT WITHIN REACH.
[2024-07-08 20:35] VITALS: BP 148/62
[2024-07-09 03:13] VITALS: BP 143/68
[2024-07-09 05:15] LABS: BASOPHILS ABSOLUTE AUTO 0.04 K/mm3 (0.00-0.23); BASOPHILS PERCENT AUTO 0 % (0-2); EOSINOPHILS ABSOLUTE AUTO 0.17 K/mm3 (0.00-0.68); EOSINOPHILS PERCENT AUTO 2 % (0-6); Hematocrit 40.8 % (37.0-53.0); Hemoglobin 12.3 g/dL (13.5-17.5); IMMATURE GRAN ABSOLUTE AUTO 0.05 K/mm3 (0.00-0.10); IMMATURE GRAN PERCENT AUTO 1 % (0-1); LYMPHOCYTES PERCENT AUTO 21 % (21-46); MONOCYTES ABSOLUTE AUTO 0.64 K/mm3 (0.16-1.47); MONOCYTES PERCENT AUTO 7 % (4-13); Mean Corpuscular HGB 28.4 pg (26.0-34.0); Mean Corpuscular HGB Conc 30.1 g/dL (31.5-36.5); Mean Corpuscular Volume 94 fL (80-100); Mean Platelet Volume 9.7 fL (9.1-12.4); NEUTROPHILS ABSOLUTE AUTO 6.58 K/mm3 (1.96-9.15); NEUTROPHILS PERCENT AUTO 69 % (41-73); Platelet Count 294 K/mm3 (150-400); RDW Coefficient Variation 14.6 % (11.7-14.2); RDW Standard Deviation 50.4 fL (35.1-46.3); Red Blood Cell Count 4.33 M/mm3 (4.30-5.90); White Blood Cell Count 9.48 K/mm3 (4.00-11.30)
[2024-07-09 05:38] LABS: Magnesium, Blood 2.3 mg/dL (1.6-2.4)
[2024-07-09 05:39] LABS: Alanine Aminotransfer (ALT/SGP 21 U/L (12-78); Albumin, Blood 2.4 g/dL (3.4-5.0); Albumin/Globulin Ratio 0.6 (0.8-1.8); Alk Phos 101 U/L (50-136); Anion Gap 11 mmol/L (3-11); Aspartate Aminotrans (AST/SGOT 27 U/L (12-37); Bilirubin, Total 0.6 mg/dL (0.1-1.0); Blood Urea Nitrogen 42 mg/dL (8-24); Bun/Creatinine Ratio 34.1 (12.0-20.0); CO2, Blood 26 mmol/L (21-32); Calcium, Blood 8.7 mg/dL (8.5-10.1); Chloride, Blood 121 mmol/L (98-108); Creatinine, Blood 1.23 mg/dL (0.60-1.20); Globulin, Blood 4.1 g/dL (2.2-4.0); Glomerular Filtration Rate 62 (60-); Glucose, Blood 137 mg/dL (70-99); Phosphorus, Blood 3.3 mg/dL (2.5-4.9); Potassium, Blood 3.9 mmol/L (3.5-5.5); Sodium, Blood 154 mmol/L (136-145); Total Protein, Blood 6.5 g/dL (6.4-8.2); Vancomycin, Random 14.6 ug/mL
--- NOTE | 2024-07-09 05:57 | NUR ---
nO DISTRESS NOTED. nO SIGNIFICANT EVENTS THROUGH THE NIGHT. pT REPOSITIONED Q2 HRS THROUGH THE NIGHT.
[2024-07-09 07:54] VITALS: BP 154/63
[2024-07-09] MEDS ORDERED: Sodium Chloride 0.45% 1,000 ML IV SCH (08:00)
[2024-07-09] MEDS ORDERED: Insulin Human Lispro 100 Units/ML 3ML Syringe SC SCH (11:30)
[2024-07-09] MEDS ORDERED: Vancomycin HCL 1,000 MG in NS 250 ML IV ONE (12:00)
--- NOTE | 2024-07-09 15:27 | NUR ---
Met with pt's daughter and granddaughter at bedside. The patient appears to be transitioning; note he is unable to clear his own secretions. His daughter was tearful during this visit, but she is able to see the changes in the patient's condition. He has continued to decline, and she has decided on comfort care, with hospice as the discharge plan. Orders received by hospitalist.
[2024-07-09] MEDS ORDERED: Atropine Sulfate 1% Opth Soln 2ML BTL SL PRN (15:55)
[2024-07-09] MEDS ORDERED: Scopolamine Hydrobromide Patch TOP PRN (15:55)
[2024-07-09] MEDS ORDERED: Morphine Sulfate 20 MG/1ML 1 ML Oral Syringe SL PRN (16:00)
[2024-07-09] MEDS ORDERED: LORazepam 0.5 MG Tab PO PRN (16:45)
--- NOTE | 2024-07-09 16:58 | NUR ---
SHIFT SUMMARY PT ALERT BUT UNABLE TO VERBALIZE NEEDS. MAY SLIGHTLY NOD BUT PHYSICALLY HE LOOKS TO BE IN PAIN. PT TRANSITIONED TO COMFORT CARE THIS SHIFT, ALSO MADE A DNR. FAMILY WENT BACK AND FORTH ABOUT THE DECISION, MAKING IT DIFFICULT TO PIN POINT THE NEEDS OF THE FAMILY. THIS NURSE FELT THE PT APPEARED TO BE IN PAIN. HE HAS A GRIMACE, A WRINKLED BROW, TENSE BODY AND WAS GRIPPING THE SIDE RAIL THE BED. THE FAMILY DOES NOT WANT THE PT MEDICATED AT ALL, THIS NURSE OFFERED A VARIETY OF MEDICATIONS THAT COULD HELP WITH HIS SYMPTOMS BUT THE FAMILY DENIED ALL OF THEM. THIS NURSE ATTEMPTED TO EDUCATE THE FAMILY, USING SIMPLE VERBAGE, ON THE IMPORTANCE OF KEEPING THE PT COMFORTABLE AND PAINLESS DURING A POSSIBLE TIME OF TRANSITION. PALLIATIVE IS AWARE OF THE SITUATION. SEE PALLIATIVE CARE NOTE. EDUCATION WAS EXTENSIVELY PROVIDED TO THE FAMILY BUT THEY STILL REFUSE THE PT MEDICATIONS TO TREAT HIS POTENTIAL ANXIETY AND/OR PAIN. PT WAS REPOSITIONED THROUGHOUT THE SHIFT. CALL LIGHT WITHIN REACH, BED LOCKED AND IN THE LOWEST POSITION. WILL REPORT TO ONCOMING NURSE.
--- NOTE | 2024-07-09 16:59 | NUR ---
Medication review completed with Dr. High. Seroquel now scheduled, with prn doses available. The goal is to provide appropriate symptom management.
[2024-07-09] MEDS ORDERED: OxyCODONE HCL 5 MG TAB PO PRN (17:05)
[2024-07-09] MEDS ORDERED: QUEtiapine Fumarate 25 MG Tab PO SCH (17:05)
[2024-07-09] MEDS ORDERED: Insulin Glargine-Yfgn 100 Unit/mL 3 ML SYR SC SCH (21:00)
--- NOTE | 2024-07-10 06:24 | NUR ---
HEAD GREASE MAKER PATIENT IS NONVERBAL, RESPONSIVE TO PAIN BUT DOES NOT OPEN EYES. PATIENT IS ON COMFORT CARE. FAMILY AT BEDSIDE.
--- NOTE | 2024-07-10 11:17 | NUR ---
"Comfort Care | Family/Nurse Request Pt. is comfort care with labored breathing, but is not responsive. Pts. youngest daughter is present and welcomed my visit. facilitated a life review. Daughter verbalized that the Pt. is a [employer] . Considered matters of carmina and belief. Daughter requested I pray for the Pt. Prayed for Pt. then engaged in more life review afterward. Daughter displayed evidence of appropriate anticipatory grief. Pastoral care is given. 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 Will remain available to the Pt., family, and staff."
--- NOTE | 2024-07-10 11:22 | NUR ---
Case Conference: Met with CM to discuss hospice option. The patient's home address is [address], [place] [address]. I spoke to [facility] and director of application development, who states their next opening isn't until "sometime next week." She also states this pt is out of their normal area and in a " zone." She states she could speak with the [facility] about making an exception, but even then they would not be unable to admit until next Sunday. Upon assessing the patient, note he is actively dying, no longer waking. Breathing is shallow. I spoke with Carla, pt's daughter and primary decision maker, explaining the situation. She states she doesn't think he will be with us by next week, and is okay with visiting him here for now.
--- NOTE | 2024-07-10 13:49 | NUR ---
PATIENT AT 1328, VERIFIED BY AUSCULTATION BY THIS NURSE AND ALFRED AYALA. FAMILY AT BEDSIDE AT TIME OF PASSING. [facility] AND SHAR WITH PALLIATIVE CARE CONTACTED AND ARE AT BEDSIDE WITH FAMILY. DR AMAYA WAS NOTIFIED.
--- NOTE | 2024-07-10 14:51 | NUR ---
"Spiritual Care | EOL Pt. had passed. Family present requested a hot dimpling machine operator to pray for the Pt. and them. Facilitated words of comfort and rememberance. Scripture is read. Benediction blessing is given for the Pt. and family. As different family members came in and out pastoral care and grief care is given. Contacted NOK who was en route by phone. When she arrived and it seemed appropriate EOL education is given. While Pt. has pre-planned arrangements with [facility] in [place]. [facility] was chosen by the NOK for Pt. pickup. Informed Charge nurse, attending nurse, and Nurse Manager Organizational. An additional call was made to [facility] so they would know the families decisions ahead of time. KATY and other familiy members commended this hot dimpling machine operator and Nurse Susan for care during this difficult time."
== END 2024-07-10 13:28 | DRG 617 ==
LOC: ER 10:34 → MEDS 12:33 → PCU 07-01 18:31 → MEDS 07-03 15:00
PROVIDERS: Emergency Medicine; Family Medicine; Hospitalist; Podiatrist; ADMIT Family Medicine
PROC: 3E03329 Introduction of Other Anti-infective into Peripheral Vein, Percutaneous Approach (ICD-10-PCS; 2024-06-25)
PROC: 0T9B70Z Drainage of Bladder with Drainage Device, Via Natural or Artificial Opening (ICD-10-PCS; 2024-06-26)
PROC: 0Y6R0Z1 Detachment at Right 2nd Toe, High, Open Approach (ICD-10-PCS; principal; 2024-06-27 12:00)
PROC: 047K3Z1 Dilation of Right Femoral Artery using Drug-Coated Balloon, Percutaneous Approach (ICD-10-PCS; 2024-07-01)
PROC: B41D1ZZ Fluoroscopy of Aorta and Bilateral Lower Extremity Arteries using Low Osmolar Contrast (ICD-10-PCS; 2024-07-01)
PROC: B44LZZ3 Ultrasonography of Femoral Artery, Intravascular (ICD-10-PCS; 2024-07-01)
PROC: 0DH67UZ Insertion of Feeding Device into Stomach, Via Natural or Artificial Opening (ICD-10-PCS; 2024-07-03)
DX: E11.69 Type 2 diabetes mellitus with other specified complication (principal); E11.52 Type 2 diabetes mellitus with diabetic peripheral angiopathy with gangrene; M86.171 Other acute osteomyelitis, right ankle and foot; E87.0 Hyperosmolality and hypernatremia; E87.1 Hypo-osmolality and hyponatremia; L02.611 Cutaneous abscess of right foot; I70.261 Atherosclerosis of native arteries of extremities with gangrene, right leg; Z66 Do not resuscitate; Z51.5 Encounter for palliative care; I70.221 Atherosclerosis of native arteries of extremities with rest pain, right leg; E88.09 Other disorders of plasma-protein metabolism, not elsewhere classified; R13.10 Dysphagia, unspecified; N17.9 Acute kidney failure, unspecified; B95.62 Methicillin resistant Staphylococcus aureus infection as the cause of diseases classified elsewhere; G20.A1 Parkinson's disease without dyskinesia, without mention of fluctuations; F02.80 Dementia in other diseases classified elsewhere, unspecified severity, without behavioral disturbance, psychotic disturbance, mood disturbance, and anxiety; L89.152 Pressure ulcer of sacral region, stage 2; I95.9 Hypotension, unspecified; I10 Essential (primary) hypertension; M20.42 Other hammer toe(s) (acquired), left foot; M20.41 Other hammer toe(s) (acquired), right foot; Z79.4 Long term (current) use of insulin; Z74.01 Bed confinement status; Z79.2 Long term (current) use of antibiotics; Z79.899 Other long term (current) drug therapy; Z88.8 Allergy status to other drugs, medicaments and biological substances; Z87.891 Personal history of nicotine dependence
CPT/HCPCS: 36200; 36245; 36415; 37224; 51702; 70551; 71045; 73630; 75625; 75716; 75774; 76770; 76937; 80048; 80053; 80202; 81001; 82803; 82947; 83605; 83735; 84100; 84132; 85025; 87040; 87071; 87075; 87077; 87086; 87186; 87205; 88305; 92526; 92610; 93922; 94760; 96374-59; 96375-59; 99152; 99153; 99284-25; A9270; C1751; C1760; C1769; C1887; C1894; C2623; J0360; J0696; J1644; J1650; J1815; J1885; J2001; J2250; J2270; J2543; J2704; J3010; J3370; J3480; J7030; J7040; J7050; J7120; Q9967